=== PATIENT | male | born 1960 | race Caucasian/White ===

== ENCOUNTER 2017-08-01 20:29 | Emergency (ER) | payer OTHER, MEDICARE ==
[~2017-08-01] VITALS: Ht 185.4 cm; Wt 122.5 kg
[~2017-08-01 20:29] MED LIST: ALBU3IS INH; ALBU90OI6 INH; AMLO5 PO; AZIT250 PO; CEFD300 PO; CIPR500 PO; CYCL10 PO; DIVA500EC PO; DULO30 PO; ENOX100I SC; FERR325 PO; FLUSAL1005 IH; FLUSAL1005 INH; FURO40 PO; Flomax0.4 MG PO; GLIP5 PO; GUAI600T33 PO; IBUP400 PO; Keflex500 MG PO; LACT10SY PO; LAVAP17G PO; LEVFLO500 PO; LEVO750 PO; LISI20 PO; MECL25 PO; METH10 PO; METH40; METO25 PO; OMEP20ER PO; POTCHL10ER PO; PRED10 PO; PROCODE120 PO; Prednisone20 MG PO; QVAR7.3 G1 INH; SPIR50 PO; TIOT18 INH; TRAM50 PO; VITAMIN D5000 UNIT PO; WARF5 PO; WARF7.5 PO; Zithromax250 MG PO
[2017-08-01 21:22] LABS: Hematocrit 45.2 % (37.0-53.0); Hemoglobin 15.1 g/dL (13.5-17.5); Mean Corpuscular HGB 32.9 pg (26.0-34.0); Mean Corpuscular HGB Conc 33.4 g/dL (31.5-36.5); Mean Corpuscular Volume 99 fL (80-100); Mean Platelet Volume 10.9 fL (9.1-12.4); Platelet Count 199 K/mm3 (150-400); RDW Coefficient Variation 12.2 % (11.7-14.2); RDW Standard Deviation 44.5 fL (35.1-46.3); Red Blood Cell Count 4.59 M/mm3 (4.30-5.90); White Blood Cell Count 8.81 K/mm3 (4.00-11.30)
[2017-08-01 21:33] LABS: International Normalized Ratio 2.01; Prothrombin Time Results 21.4 Sec (9.7-11.5)
[2017-08-01 21:35] LABS: Anion Gap 7 mmol/L (6-16); Blood Urea Nitrogen 24 mg/dL (8-24); Bun/Creatinine Ratio 31.2 (12.0-20.0); CO2, Blood 29 mmol/L (21-32); Calcium, Blood 8.9 mg/dL (8.5-10.1); Chloride, Blood 100 mmol/L (98-108); Creatinine, Blood 0.77 mg/dL (0.60-1.20); Glomerular Filtration Rate >60 (60-); Glucose, Blood 84 mg/dL (70-99); Sodium, Blood 136 mmol/L (136-145)
== END 2017-08-01 22:15 | disposition home or self-care (01) ==
LOC: ER 20:29
PROVIDERS: Emergency Medicine
DX: S30.1XXA Contusion of abdominal wall, initial encounter (principal); E11.9 Type 2 diabetes mellitus without complications; J44.9 Chronic obstructive pulmonary disease, unspecified; F41.9 Anxiety disorder, unspecified; F31.9 Bipolar disorder, unspecified; Z86.711 Personal history of pulmonary embolism; Z87.01 Personal history of pneumonia (recurrent); V49.49XA Driver injured in collision with other motor vehicles in traffic accident, initial encounter; Y92.481 Parking lot as the place of occurrence of the external cause; Z88.8 Allergy status to other drugs, medicaments and biological substances; Z88.1 Allergy status to other antibiotic agents; Z79.899 Other long term (current) drug therapy; Z79.01 Long term (current) use of anticoagulants
CPT/HCPCS: 36415; 74176; 80048; 85027; 85610; 99284

== ENCOUNTER → 2017-09-14 | Outpatient (CLI) | payer MEDICARE ==
[2017-09-14 14:27] LABS: International Normalized Ratio 1.86; Prothrombin Time Results 19.7 Sec (9.7-11.5)
== END | disposition home or self-care (01) ==
LOC: OLS 12:23
PROVIDERS: Family Medicine
DX: E11.9 Type 2 diabetes mellitus without complications (principal); Z79.01 Long term (current) use of anticoagulants
CPT/HCPCS: 36415; 83036; 85610

== ENCOUNTER 2019-10-01 00:26 | Emergency (ER) | payer MEDICARE ==
[~2019-10-01] VITALS: Ht 185.4 cm; Wt 81.7 kg
[2019-10-01 01:42] LABS: Source, Urine Clean Catch
[2019-10-01 01:44] LABS: Appearance, Urine Hazy (Clear); Bilirubin, Urine Neg (Neg); Blood, Urine 2+ (Neg); Color, Urine Yellow (P-Yellow); Glucose Qualitative, Urine Neg (Neg); Ketones, Urine 1+ (Neg); Leukocyte Esterase, Urine 3+ (Neg); Nitrite, Urine Pos (Neg); Protein, Urine 2+ (Neg); Specific Gravity, Urine 1.015 (1.003-1.022); Urobilinogen, Urine NORM (Normal)
[2019-10-01 02:02] LABS: Bacteria Many /hpf; Red Blood Cells, Urine Rare /hpf (0-2); Squamous Epithelial Cells Not Seen /hpf (Few); White Blood Cells, Urine TNTC /hpf (0-5)
[2019-10-01] MEDS ORDERED: CEFD300 PO (02:10)
== END 2019-10-01 02:45 | disposition home or self-care (01) ==
LOC: ER 00:26
PROVIDERS: Emergency Medicine
DX: N39.0 Urinary tract infection, site not specified (principal); J44.9 Chronic obstructive pulmonary disease, unspecified; E11.9 Type 2 diabetes mellitus without complications; F31.9 Bipolar disorder, unspecified; F41.9 Anxiety disorder, unspecified; Z86.711 Personal history of pulmonary embolism; Z86.718 Personal history of other venous thrombosis and embolism; Z87.01 Personal history of pneumonia (recurrent); Z88.1 Allergy status to other antibiotic agents; Z88.8 Allergy status to other drugs, medicaments and biological substances; Z79.899 Other long term (current) drug therapy; Z87.891 Personal history of nicotine dependence
CPT/HCPCS: 81001; 87077; 87086; 87186; 99283

== ENCOUNTER 2019-10-08 20:37 | Emergency (ER) | payer MEDICARE ==
[~2019-10-08] VITALS: Ht 185.4 cm; Wt 124.3 kg
[2019-10-08 21:04] LABS: Source, Urine Clean Catch
[2019-10-08 21:07] LABS: Appearance, Urine Clear (Clear); Bilirubin, Urine Neg (Neg); Blood, Urine Neg (Neg); Color, Urine Yellow (P-Yellow); Glucose Qualitative, Urine Neg (Neg); Ketones, Urine Neg (Neg); Leukocyte Esterase, Urine Neg (Neg); Nitrite, Urine Neg (Neg); Protein, Urine Neg (Neg); Urobilinogen, Urine NORM (Normal)
[2019-10-08] MEDS ORDERED: Keflex500 MG PO (21:27)
== END 2019-10-08 21:42 | disposition home or self-care (01) ==
LOC: ER 20:37
PROVIDERS: Nurse Practitioner
DX: R30.0 Dysuria (principal); J44.9 Chronic obstructive pulmonary disease, unspecified; F31.9 Bipolar disorder, unspecified; F41.9 Anxiety disorder, unspecified; Z86.711 Personal history of pulmonary embolism; Z87.01 Personal history of pneumonia (recurrent); Z88.0 Allergy status to penicillin; Z88.8 Allergy status to other drugs, medicaments and biological substances; Z79.899 Other long term (current) drug therapy; Z87.891 Personal history of nicotine dependence
CPT/HCPCS: 81003; 99283; A9270-GY

== ENCOUNTER 2020-07-06 01:22 | Emergency (ER) | payer MEDICARE ==
[~2020-07-06] VITALS: Ht 185.4 cm; Wt 117.9 kg
[2020-07-06 02:23] LABS: International Normalized Ratio 1.85; Prothrombin Time Results 19.1 Sec (9.7-11.5)
[2020-07-06] MEDS ORDERED: Cleocin HCl300 MG PO (02:58)
== END 2020-07-06 03:24 | disposition home or self-care (01) ==
LOC: ER 01:22
PROVIDERS: Emergency Medicine
DX: R05 Cough (principal); E11.9 Type 2 diabetes mellitus without complications; J44.9 Chronic obstructive pulmonary disease, unspecified; Z79.01 Long term (current) use of anticoagulants; Z79.899 Other long term (current) drug therapy; Z88.8 Allergy status to other drugs, medicaments and biological substances; Z88.0 Allergy status to penicillin; Z88.1 Allergy status to other antibiotic agents; Z86.711 Personal history of pulmonary embolism; Z86.718 Personal history of other venous thrombosis and embolism
CPT/HCPCS: 36415; 71046; 85610; 99284-25

== ENCOUNTER 2020-07-27 19:55 | Emergency (ER) | payer MEDICARE ==
[~2020-07-27] VITALS: Ht 185.4 cm; Wt 121.6 kg
[~2020-07-27 19:55] MED LIST changes: +Cleocin HCl300 MG PO
[2020-07-27] MEDS ORDERED: CEPH500 PO (20:45)
[2020-07-27] MEDS ORDERED: Amphetamine Sal20 MG PO (21:14)
== END 2020-07-27 21:16 | disposition home or self-care (01) ==
LOC: ER 19:55
DX: L02.212 Cutaneous abscess of back [any part, except buttock and flank] (principal); J44.9 Chronic obstructive pulmonary disease, unspecified; E11.9 Type 2 diabetes mellitus without complications; Z23 Encounter for immunization; Z79.01 Long term (current) use of anticoagulants; Z79.899 Other long term (current) drug therapy; Z88.0 Allergy status to penicillin; Z88.1 Allergy status to other antibiotic agents; Z86.711 Personal history of pulmonary embolism; Z86.718 Personal history of other venous thrombosis and embolism; Z87.891 Personal history of nicotine dependence
CPT/HCPCS: 90471; 90714; 99282

== ENCOUNTER 2020-08-28 00:39 | Emergency (ER) | payer MEDICARE ==
[~2020-08-28] VITALS: Ht 185.4 cm; Wt 120.2 kg
[~2020-08-28 00:39] MED LIST changes: +Amphetamine Sal20 MG PO; +CEPH500 PO
[2020-08-28] MEDS ORDERED: Levaquin750 MG PO (03:44)
== END 2020-08-28 04:31 | disposition home or self-care (01) ==
LOC: ER 00:39
DX: J18.9 Pneumonia, unspecified organism (principal); J44.9 Chronic obstructive pulmonary disease, unspecified; E11.9 Type 2 diabetes mellitus without complications; Z20.822 Contact with and (suspected) exposure to COVID-19; Z88.0 Allergy status to penicillin; Z88.1 Allergy status to other antibiotic agents; Z88.6 Allergy status to analgesic agent; Z79.01 Long term (current) use of anticoagulants; Z79.891 Long term (current) use of opiate analgesic; Z87.891 Personal history of nicotine dependence
CPT/HCPCS: 71045; 99283-25; A9270

== ENCOUNTER 2020-09-17 21:19 | Emergency (ER) | payer MEDICARE ==
[~2020-09-17] VITALS: Ht 185.4 cm; Wt 122.5 kg
[~2020-09-17 21:19] MED LIST changes: +Levaquin750 MG PO
[2020-09-17] MEDS ORDERED: Prednisone50 MG PO (23:21)
[2020-09-17] MEDS ORDERED: DOXYCYCLINE HY100 M1 PO (23:21)
== END 2020-09-18 00:32 | disposition home or self-care (01) ==
LOC: ER 21:19
DX: J44.1 Chronic obstructive pulmonary disease with (acute) exacerbation (principal); E11.9 Type 2 diabetes mellitus without complications; Z88.0 Allergy status to penicillin; Z88.1 Allergy status to other antibiotic agents; Z88.8 Allergy status to other drugs, medicaments and biological substances; Z86.718 Personal history of other venous thrombosis and embolism; Z87.891 Personal history of nicotine dependence
CPT/HCPCS: 71046; 94640; 99283-25; A9270; J7512

== ENCOUNTER → 2020-10-26 | Outpatient (CLI) | payer MEDICARE, OTHER ==
[~2020-10-26] MED LIST changes: +DOXYCYCLINE HY100 M1 PO; +Prednisone50 MG PO
== END | disposition home or self-care (01) ==
LOC: LAB SHORT 16:36 → LAB EV 16:36
DX: R30.9 Painful micturition, unspecified (principal)
CPT/HCPCS: 87086

== ENCOUNTER 2020-12-30 19:14 | Emergency (ER) | payer MEDICARE ==
[~2020-12-30] VITALS: Ht 185.4 cm; Wt 124.7 kg
[2020-12-30 20:36] LABS: BASOPHILS ABSOLUTE AUTO 0.04 K/mm3 (0.00-0.23); BASOPHILS PERCENT AUTO 0 % (0-2); EOSINOPHILS ABSOLUTE AUTO 0.06 K/mm3 (0.00-0.68); EOSINOPHILS PERCENT AUTO 1 % (0-6); Hematocrit 43.9 % (37.0-53.0); Hemoglobin 14.9 g/dL (13.5-17.5); IMMATURE GRAN ABSOLUTE AUTO 0.02 K/mm3 (0.00-0.10); IMMATURE GRAN PERCENT AUTO 0 % (0-1); LYMPHOCYTES ABSOLUTE AUTO 3.08 K/mm3 (0.84-5.20); LYMPHOCYTES PERCENT AUTO 27 % (21-46); MONOCYTES ABSOLUTE AUTO 0.88 K/mm3 (0.16-1.47); MONOCYTES PERCENT AUTO 8 % (4-13); Mean Corpuscular HGB 33.7 pg (26.0-34.0); Mean Corpuscular HGB Conc 33.9 g/dL (31.5-36.5); Mean Corpuscular Volume 99 fL (80-100); Mean Platelet Volume 11.1 fL (9.1-12.4); NEUTROPHILS ABSOLUTE AUTO 7.44 K/mm3 (1.96-9.15); NEUTROPHILS PERCENT AUTO 65 % (41-73); Platelet Count 184 K/mm3 (150-400); RDW Coefficient Variation 12.3 % (11.7-14.2); RDW Standard Deviation 45.7 fL (35.1-46.3); Red Blood Cell Count 4.42 M/mm3 (4.30-5.90); White Blood Cell Count 11.52 K/mm3 (4.00-11.30)
[2020-12-30 20:54] LABS: Alanine Aminotransfer (ALT/SGP 23 U/L (12-78); Albumin, Blood 3.9 g/dL (3.4-5.0); Alk Phos 67 U/L (50-136); Anion Gap 3 mmol/L (6-16); Aspartate Aminotrans (AST/SGOT 20 U/L (12-37); Bilirubin, Total 0.5 mg/dL (0.1-1.0); Blood Urea Nitrogen 23 mg/dL (8-24); Bun/Creatinine Ratio 26.7 (12.0-20.0); CO2, Blood 31 mmol/L (21-32); Chloride, Blood 102 mmol/L (98-108); Creatinine, Blood 0.86 mg/dL (0.60-1.20); Globulin, Blood 3.9 g/dL (2.2-4.0); Glomerular Filtration Rate >60 (60-); Glucose, Blood 122 mg/dL (70-99); Potassium, Blood 4.7 mmol/L (3.5-5.5); Sodium, Blood 136 mmol/L (136-145); Total Protein, Blood 7.8 g/dL (6.4-8.2)
[2020-12-30 23:45] LABS: International Normalized Ratio 2.16; Prothrombin Time Results 22.3 Sec (9.7-11.5)
[2020-12-31 00:14] LABS: Troponin I <0.015 ng/mL (0.000-0.040)
[2020-12-31] MEDS ORDERED: Prednisone50 MG PO (00:51)
[2020-12-31] MEDS ORDERED: Vibramycin100 MG PO (00:51)
[2020-12-31] MEDS ORDERED: ALBU90OI61 INH (00:53)
== END 2020-12-31 01:04 | disposition home or self-care (01) ==
LOC: ER 19:14
PROVIDERS: Emergency Medicine
DX: J44.1 Chronic obstructive pulmonary disease with (acute) exacerbation (principal)
CPT/HCPCS: 36415; 71046; 80053; 84484; 85025; 85610; 94644; 96374; 99285-25; J2930

== ENCOUNTER → 2021-07-23 | Outpatient (CLI) | payer MEDICARE ==
[~2021-07-23] MED LIST changes: +ALBU90OI61 INH; +Vibramycin100 MG PO
== END | disposition home or self-care (01) ==
LOC: LAB SHORT 19:12
DX: N12 Tubulo-interstitial nephritis, not specified as acute or chronic (principal)
CPT/HCPCS: 87086

== ENCOUNTER 2021-09-07 21:10 | Emergency (ER) | payer MEDICARE ==
[~2021-09-07] VITALS: Ht 185.4 cm; Wt 122.5 kg
[2021-09-07 21:48] LABS: BASOPHILS ABSOLUTE AUTO 0.03 K/mm3 (0.00-0.23); BASOPHILS PERCENT AUTO 0 % (0-2); EOSINOPHILS ABSOLUTE AUTO 0.05 K/mm3 (0.00-0.68); EOSINOPHILS PERCENT AUTO 1 % (0-6); Hematocrit 40.3 % (37.0-53.0); Hemoglobin 13.6 g/dL (13.5-17.5); IMMATURE GRAN ABSOLUTE AUTO 0.03 K/mm3 (0.00-0.10); IMMATURE GRAN PERCENT AUTO 0 % (0-1); LYMPHOCYTES ABSOLUTE AUTO 2.19 K/mm3 (0.84-5.20); LYMPHOCYTES PERCENT AUTO 26 % (21-46); MONOCYTES ABSOLUTE AUTO 0.49 K/mm3 (0.16-1.47); MONOCYTES PERCENT AUTO 6 % (4-13); Mean Corpuscular HGB 33.3 pg (26.0-34.0); Mean Corpuscular HGB Conc 33.7 g/dL (31.5-36.5); Mean Corpuscular Volume 99 fL (80-100); Mean Platelet Volume 10.6 fL (9.1-12.4); NEUTROPHILS ABSOLUTE AUTO 5.66 K/mm3 (1.96-9.15); NEUTROPHILS PERCENT AUTO 67 % (41-73); Platelet Count 176 K/mm3 (150-400); RDW Coefficient Variation 11.8 % (11.7-14.2); RDW Standard Deviation 43.1 fL (35.1-46.3); Red Blood Cell Count 4.08 M/mm3 (4.30-5.90); White Blood Cell Count 8.45 K/mm3 (4.00-11.30)
[2021-09-07 21:53] LABS: Source, Urine Clean Catch
[2021-09-07 22:02] LABS: Bilirubin, Urine Neg (Neg); Blood, Urine Neg (Neg); Glucose Qualitative, Urine Neg (Neg); Ketones, Urine 1+ (Neg); Leukocyte Esterase, Urine 1+ (Neg); Nitrite, Urine Neg (Neg); Protein, Urine Neg (Neg); Urobilinogen, Urine NORM (Normal)
[2021-09-07 22:10] LABS: Alanine Aminotransfer (ALT/SGP 29 U/L (12-78); Albumin, Blood 4.1 g/dL (3.4-5.0); Albumin/Globulin Ratio 1.2 (0.8-1.8); Alk Phos 74 U/L (50-136); Anion Gap 7 mmol/L (6-16); Aspartate Aminotrans (AST/SGOT 18 U/L (12-37); Bilirubin, Total 0.4 mg/dL (0.1-1.0); Blood Urea Nitrogen 22 mg/dL (8-24); Bun/Creatinine Ratio 25.5 (12.0-20.0); CO2, Blood 29 mmol/L (21-32); Calcium, Blood 9.1 mg/dL (8.5-10.1); Chloride, Blood 102 mmol/L (98-108); Creatinine, Blood 0.86 mg/dL (0.60-1.20); Globulin, Blood 3.5 g/dL (2.2-4.0); Glomerular Filtration Rate >60 (60-); Glucose, Blood 114 mg/dL (70-99); Potassium, Blood 4.1 mmol/L (3.5-5.5); Sodium, Blood 138 mmol/L (136-145); Total Protein, Blood 7.6 g/dL (6.4-8.2)
[2021-09-07 22:16] LABS: Appearance, Urine Clear (Clear); Color, Urine Yellow (P-Yellow)
[2021-09-07 22:18] LABS: Bacteria Rare /hpf; Red Blood Cells, Urine Not Seen /hpf (0-2); Squamous Epithelial Cells Rare /hpf (Few); White Blood Cells, Urine 0-2 /hpf (0-5)
[2021-09-08] MEDS ORDERED: CYCL10 PO (01:01)
== END 2021-09-08 01:15 | disposition home or self-care (01) ==
LOC: ER 21:10
PROVIDERS: Emergency Medicine
DX: M54.9 Dorsalgia, unspecified (principal); E11.9 Type 2 diabetes mellitus without complications; J44.9 Chronic obstructive pulmonary disease, unspecified; Z87.891 Personal history of nicotine dependence; Z79.899 Other long term (current) drug therapy; Z88.1 Allergy status to other antibiotic agents; Z88.8 Allergy status to other drugs, medicaments and biological substances
CPT/HCPCS: 36415; 76770; 80053; 81001; 85025; 87086; 96374; 99284-25; A9270; J1885

== ENCOUNTER → 2021-09-13 | Outpatient (CLI) | payer MEDICARE ==
[2021-09-13 14:09] LABS: International Normalized Ratio 2.65; Prothrombin Time Results 26.1 Sec (9.7-11.5)
== END ==
LOC: LAB SHORT 13:41
PROVIDERS: Family Medicine
DX: I82.402 Acute embolism and thrombosis of unspecified deep veins of left lower extremity (principal)
CPT/HCPCS: 85610

== ENCOUNTER 2021-11-06 00:39 | Emergency (ER) | payer MEDICARE ==
[~2021-11-06] VITALS: Ht 185.4 cm; Wt 120.2 kg
[2021-11-06 01:59] LABS: BASOPHILS ABSOLUTE AUTO 0.04 K/mm3 (0.00-0.23); BASOPHILS PERCENT AUTO 0 % (0-2); EOSINOPHILS ABSOLUTE AUTO 0.18 K/mm3 (0.00-0.68); EOSINOPHILS PERCENT AUTO 2 % (0-6); Hematocrit 41.8 % (37.0-53.0); Hemoglobin 14.1 g/dL (13.5-17.5); IMMATURE GRAN ABSOLUTE AUTO 0.04 K/mm3 (0.00-0.10); IMMATURE GRAN PERCENT AUTO 0 % (0-1); LYMPHOCYTES ABSOLUTE AUTO 3.52 K/mm3 (0.84-5.20); LYMPHOCYTES PERCENT AUTO 34 % (21-46); MONOCYTES ABSOLUTE AUTO 0.93 K/mm3 (0.16-1.47); MONOCYTES PERCENT AUTO 9 % (4-13); Mean Corpuscular HGB 33.8 pg (26.0-34.0); Mean Corpuscular HGB Conc 33.7 g/dL (31.5-36.5); Mean Corpuscular Volume 100 fL (80-100); Mean Platelet Volume 10.8 fL (9.1-12.4); NEUTROPHILS ABSOLUTE AUTO 5.81 K/mm3 (1.96-9.15); NEUTROPHILS PERCENT AUTO 55 % (41-73); Platelet Count 208 K/mm3 (150-400); RDW Coefficient Variation 11.8 % (11.7-14.2); RDW Standard Deviation 43.3 fL (35.1-46.3); Red Blood Cell Count 4.17 M/mm3 (4.30-5.90); White Blood Cell Count 10.52 K/mm3 (4.00-11.30)
[2021-11-06 02:10] LABS: International Normalized Ratio 1.09; Prothrombin Time Results 11.4 Sec (9.7-11.5)
[2021-11-06 02:15] LABS: Alanine Aminotransfer (ALT/SGP 24 U/L (12-78); Albumin/Globulin Ratio 1.1 (0.8-1.8); Alk Phos 72 U/L (50-136); Anion Gap 4 mmol/L (6-16); Aspartate Aminotrans (AST/SGOT 15 U/L (12-37); Bilirubin, Total 0.5 mg/dL (0.1-1.0); Blood Urea Nitrogen 24 mg/dL (8-24); Bun/Creatinine Ratio 24.4 (12.0-20.0); CO2, Blood 31 mmol/L (21-32); Chloride, Blood 100 mmol/L (98-108); Creatinine, Blood 0.99 mg/dL (0.60-1.20); Globulin, Blood 3.8 g/dL (2.2-4.0); Glomerular Filtration Rate >60 (60-); Glucose, Blood 147 mg/dL (70-99); Potassium, Blood 4.1 mmol/L (3.5-5.5); Sodium, Blood 135 mmol/L (136-145); Total Protein, Blood 7.8 g/dL (6.4-8.2)
[2021-11-06] MEDS ORDERED: MECL25 PO (06:45)
== END 2021-11-06 07:38 | disposition home or self-care (01) ==
LOC: ER 00:39
PROVIDERS: Physician Assistant
DX: R07.9 Chest pain, unspecified (principal); R42 Dizziness and giddiness; J44.9 Chronic obstructive pulmonary disease, unspecified; E11.9 Type 2 diabetes mellitus without complications; F31.9 Bipolar disorder, unspecified; Z86.711 Personal history of pulmonary embolism; Z79.01 Long term (current) use of anticoagulants; Z87.891 Personal history of nicotine dependence; Z79.899 Other long term (current) drug therapy; Z88.0 Allergy status to penicillin; Z88.5 Allergy status to narcotic agent; Z88.8 Allergy status to other drugs, medicaments and biological substances
CPT/HCPCS: 36415; 70450; 71045; 80053; 84484; 85025; 85610; A9270

== ENCOUNTER → 2021-11-29 | Outpatient (CLI) | payer MEDICARE ==
[2021-11-29 13:44] LABS: Protein, Urine Quantitative 6.2 mg/dL (0.0-11.9)
[2021-11-29 13:48] LABS: Microalbumin, Urine Quant. <5.000 mg/L (0.000-20.000)
== END ==
LOC: LAB SHORT 11:56 → LAB FUT 11-27 14:45
PROVIDERS: Internal Medicine Nephrology
DX: D50.9 Iron deficiency anemia, unspecified (principal); N18.2 Chronic kidney disease, stage 2 (mild); D63.1 Anemia in chronic kidney disease; N25.81 Secondary hyperparathyroidism of renal origin; E55.9 Vitamin D deficiency, unspecified; E78.00 Pure hypercholesterolemia, unspecified; R76.9 Abnormal immunological finding in serum, unspecified; R94.5 Abnormal results of liver function studies; R94.6 Abnormal results of thyroid function studies; D51.8 Other vitamin B12 deficiency anemias; D52.8 Other folate deficiency anemias
CPT/HCPCS: 81050; 82043; 82570; 84156

== ENCOUNTER 2021-12-06 13:06 | Emergency (ER) | payer MEDICARE, OTHER ==
[~2021-12-06] VITALS: Ht 185.4 cm; Wt 118.8 kg
[2021-12-06 14:14] LABS: BASOPHILS ABSOLUTE AUTO 0.02 K/mm3 (0.00-0.23); BASOPHILS PERCENT AUTO 0 % (0-2); EOSINOPHILS ABSOLUTE AUTO 0.05 K/mm3 (0.00-0.68); EOSINOPHILS PERCENT AUTO 1 % (0-6); Hematocrit 39.2 % (37.0-53.0); Hemoglobin 13.5 g/dL (13.5-17.5); IMMATURE GRAN ABSOLUTE AUTO 0.03 K/mm3 (0.00-0.10); IMMATURE GRAN PERCENT AUTO 0 % (0-1); LYMPHOCYTES ABSOLUTE AUTO 2.04 K/mm3 (0.84-5.20); LYMPHOCYTES PERCENT AUTO 23 % (21-46); MONOCYTES ABSOLUTE AUTO 0.41 K/mm3 (0.16-1.47); MONOCYTES PERCENT AUTO 5 % (4-13); Mean Corpuscular HGB 33.4 pg (26.0-34.0); Mean Corpuscular HGB Conc 34.4 g/dL (31.5-36.5); Mean Corpuscular Volume 97 fL (80-100); Mean Platelet Volume 11.4 fL (9.1-12.4); NEUTROPHILS ABSOLUTE AUTO 6.23 K/mm3 (1.96-9.15); NEUTROPHILS PERCENT AUTO 71 % (41-73); Platelet Count 209 K/mm3 (150-400); RDW Coefficient Variation 11.2 % (11.7-14.2); RDW Standard Deviation 40.3 fL (35.1-46.3); Red Blood Cell Count 4.04 M/mm3 (4.30-5.90); White Blood Cell Count 8.78 K/mm3 (4.00-11.30)
[2021-12-06 14:18] LABS: Albumin, Blood 3.8 g/dL (3.4-5.0); Bilirubin, Total 0.5 mg/dL (0.1-1.0); Bun/Creatinine Ratio 25.1 (12.0-20.0); Calcium, Blood 9.2 mg/dL (8.5-10.1); Creatinine, Blood 0.72 mg/dL (0.60-1.20); Globulin, Blood 3.9 g/dL (2.2-4.0); Potassium, Blood 4.3 mmol/L (3.5-5.5); Total Protein, Blood 7.7 g/dL (6.4-8.2)
[2021-12-06 16:08] LABS: Source, Urine Clean Catch
[2021-12-06] MEDS ORDERED: TAMS.4ER (16:21)
[2021-12-06] MEDS ORDERED: METF500 (16:21)
[2021-12-06 16:22] LABS: Appearance, Urine Clear (Clear); Bilirubin, Urine Neg (Neg); Blood, Urine Neg (Neg); Glucose Qualitative, Urine Neg (Neg); Ketones, Urine Neg (Neg); Leukocyte Esterase, Urine Neg (Neg); Nitrite, Urine Neg (Neg); Protein, Urine Neg (Neg); Specific Gravity, Urine 1.005 (1.003-1.022); Urobilinogen, Urine NORM (Normal)
[2021-12-06 16:42] LABS: Color, Urine Pale Yellow (P-Yellow)
== END 2021-12-06 17:14 | disposition home or self-care (01) ==
LOC: ER 13:06
PROVIDERS: Student in an Organized Health Care Education/Training Program
DX: R10.10 Upper abdominal pain, unspecified (principal); J44.9 Chronic obstructive pulmonary disease, unspecified; E11.9 Type 2 diabetes mellitus without complications; Z99.81 Dependence on supplemental oxygen
CPT/HCPCS: 36415; 74177; 80053; 81003; 83690; 84484; 85025; 93005; 93010; Q9967

== ENCOUNTER 2021-12-28 16:07 | Emergency (ER) | payer MEDICARE ==
[~2021-12-28] VITALS: Ht 188 cm; Wt 95.2 kg
[~2021-12-28 16:07] MED LIST changes: +METF500; +TAMS.4ER
[2021-12-28 18:04] LABS: BASOPHILS ABSOLUTE AUTO 0.03 K/mm3 (0.00-0.23); BASOPHILS PERCENT AUTO 0 % (0-2); EOSINOPHILS ABSOLUTE AUTO 0.05 K/mm3 (0.00-0.68); EOSINOPHILS PERCENT AUTO 1 % (0-6); Hematocrit 40.1 % (37.0-53.0); Hemoglobin 13.9 g/dL (13.5-17.5); IMMATURE GRAN ABSOLUTE AUTO 0.01 K/mm3 (0.00-0.10); IMMATURE GRAN PERCENT AUTO 0 % (0-1); LYMPHOCYTES ABSOLUTE AUTO 2.75 K/mm3 (0.84-5.20); LYMPHOCYTES PERCENT AUTO 33 % (21-46); MONOCYTES ABSOLUTE AUTO 0.48 K/mm3 (0.16-1.47); MONOCYTES PERCENT AUTO 6 % (4-13); Mean Corpuscular HGB 33.3 pg (26.0-34.0); Mean Corpuscular HGB Conc 34.7 g/dL (31.5-36.5); Mean Corpuscular Volume 96 fL (80-100); Mean Platelet Volume 10.6 fL (9.1-12.4); NEUTROPHILS ABSOLUTE AUTO 5.05 K/mm3 (1.96-9.15); NEUTROPHILS PERCENT AUTO 60 % (41-73); Platelet Count 197 K/mm3 (150-400); RDW Coefficient Variation 11.5 % (11.7-14.2); RDW Standard Deviation 40.6 fL (35.1-46.3); Red Blood Cell Count 4.17 M/mm3 (4.30-5.90); White Blood Cell Count 8.37 K/mm3 (4.00-11.30)
[2021-12-28 18:13] LABS: International Normalized Ratio 2.39; Prothrombin Time Results 23.7 Sec (9.7-11.5)
[2021-12-28 18:18] LABS: Albumin, Blood 4.1 g/dL (3.4-5.0); Albumin/Globulin Ratio 1.1 (0.8-1.8); Bilirubin, Total 0.5 mg/dL (0.1-1.0); Bun/Creatinine Ratio 21.8 (12.0-20.0); Calcium, Blood 9.4 mg/dL (8.5-10.1); Creatinine, Blood 0.97 mg/dL (0.60-1.20); Globulin, Blood 3.8 g/dL (2.2-4.0); Potassium, Blood 4.1 mmol/L (3.5-5.5); Total Protein, Blood 7.9 g/dL (6.4-8.2)
[2021-12-28 18:29] LABS: Valproic Acid <3.0 ug/mL (50.0-100.0)
[2021-12-28] MEDS ORDERED: ACETAMINOPHEN500 MG PO (19:18)
== END 2021-12-28 20:05 | disposition home or self-care (01) ==
LOC: ER 16:07
PROVIDERS: Physician Assistant
DX: M26.621 Arthralgia of right temporomandibular joint (principal); M54.2 Cervicalgia; D17.0 Benign lipomatous neoplasm of skin and subcutaneous tissue of head, face and neck; J44.9 Chronic obstructive pulmonary disease, unspecified; E11.9 Type 2 diabetes mellitus without complications; Z79.01 Long term (current) use of anticoagulants; Z79.899 Other long term (current) drug therapy; Z79.84 Long term (current) use of oral hypoglycemic drugs; Z88.0 Allergy status to penicillin; Z88.8 Allergy status to other drugs, medicaments and biological substances
CPT/HCPCS: 36415; 80053; 80164; 85025; 85610; J1200; J1885; J2765; J7030

== ENCOUNTER → 2022-03-19 | Outpatient (CLI) | payer MEDICARE ==
[~2022-03-19] MED LIST changes: +ACETAMINOPHEN500 MG PO
[2022-03-19 18:31] LABS: Valproic Acid 81.3 ug/mL (50.0-100.0)
== END | disposition home or self-care (01) ==
LOC: LAB SHORT 15:45
PROVIDERS: Family Medicine
DX: F31.9 Bipolar disorder, unspecified (principal)
CPT/HCPCS: 80164

== ENCOUNTER → 2022-10-07 | Outpatient (CLI) | payer MEDICARE ==
[2022-10-07 17:31] LABS: International Normalized Ratio 1.16; Prothrombin Time Results 12.1 Sec (9.7-11.5)
== END | disposition home or self-care (01) ==
LOC: LAB SHORT 16:36
PROVIDERS: Family Medicine
DX: Z79.01 Long term (current) use of anticoagulants (principal); Z51.81 Encounter for therapeutic drug level monitoring
CPT/HCPCS: 85610

== ENCOUNTER → 2022-10-31 | Outpatient (CLI) | payer MEDICARE ==
[2022-10-31 14:09] LABS: Prothrombin Time Results 46.2 Sec (9.7-11.5)
[2022-10-31 14:50] LABS: International Normalized Ratio 4.81
== END | disposition home or self-care (01) ==
LOC: LAB SHORT 13:33
PROVIDERS: Family Medicine
DX: I82.409 Acute embolism and thrombosis of unspecified deep veins of unspecified lower extremity (principal)
CPT/HCPCS: 36415; 85610

== ENCOUNTER → 2022-11-16 | Outpatient (CLI) | payer MEDICARE ==
[2022-11-17 10:10] LABS: BASOPHILS ABSOLUTE AUTO 0.03 K/mm3 (0.00-0.23); BASOPHILS PERCENT AUTO 1 % (0-2); EOSINOPHILS ABSOLUTE AUTO 0.07 K/mm3 (0.00-0.68); EOSINOPHILS PERCENT AUTO 1 % (0-6); Hematocrit 40.2 % (37.0-53.0); Hemoglobin 13.5 g/dL (13.5-17.5); IMMATURE GRAN ABSOLUTE AUTO 0.02 K/mm3 (0.00-0.10); IMMATURE GRAN PERCENT AUTO 0 % (0-1); LYMPHOCYTES ABSOLUTE AUTO 1.88 K/mm3 (0.84-5.20); LYMPHOCYTES PERCENT AUTO 29 % (21-46); MONOCYTES ABSOLUTE AUTO 0.46 K/mm3 (0.16-1.47); MONOCYTES PERCENT AUTO 7 % (4-13); Mean Corpuscular HGB 33.8 pg (26.0-34.0); Mean Corpuscular HGB Conc 33.6 g/dL (31.5-36.5); Mean Corpuscular Volume 101 fL (80-100); Mean Platelet Volume 11.7 fL (9.1-12.4); NEUTROPHILS ABSOLUTE AUTO 3.95 K/mm3 (1.96-9.15); NEUTROPHILS PERCENT AUTO 62 % (41-73); Platelet Count 101 K/mm3 (150-400); RDW Coefficient Variation 13.2 % (11.7-14.2); Red Blood Cell Count 3.99 M/mm3 (4.30-5.90); White Blood Cell Count 6.41 K/mm3 (4.00-11.30)
[2022-11-17 10:18] LABS: International Normalized Ratio 2.83
== END | disposition home or self-care (01) ==
LOC: LAB 15:15 → LAB SHORT 15:15
PROVIDERS: Family Medicine
DX: Z79.01 Long term (current) use of anticoagulants (principal); Z51.81 Encounter for therapeutic drug level monitoring; R10.9 Unspecified abdominal pain
CPT/HCPCS: 83690; 85025; 85610

== ENCOUNTER → 2022-11-17 | Outpatient (CLI) | payer MEDICARE | END | disposition home or self-care (01) | LOC: LAB SHORT 15:46 → LAB 15:46 | DX: R10.9 Unspecified abdominal pain (principal) | CPT/HCPCS: 87338 ==

== ENCOUNTER → 2022-12-16 | Outpatient (CLI) | payer MEDICARE ==
[2022-12-16 18:15] LABS: International Normalized Ratio 2.59; Prothrombin Time Results 25.8 Sec (9.7-11.5)
== END | disposition home or self-care (01) ==
LOC: LAB 17:49 → LAB SHORT 17:49
PROVIDERS: Family Medicine
DX: I82.409 Acute embolism and thrombosis of unspecified deep veins of unspecified lower extremity (principal)
CPT/HCPCS: 85610

== ENCOUNTER → 2023-06-24 | Outpatient (CLI) | payer MEDICARE | LOC: LAB 18:48 → LAB SHORT 18:48 | DX: R30.0 Dysuria (principal) | CPT/HCPCS: 87086 ==

== ENCOUNTER → 2024-07-17 | Outpatient (CLI) | payer MEDICARE ==
[~2024-07-17] MED LIST changes: +FLUT.05NI; +FT SENNA-S 8.61 EACH PO; +GLIP10 PO; +IPRAT-ALBUT 0.5-3 ML INH; +METF500 PO; +ZOLP10 PO
== END | disposition home or self-care (01) ==
LOC: PLD 08:24 → LAB 08:24 → LAB SHORT 08:24
DX: D22.5 Melanocytic nevi of trunk (principal); L82.0 Inflamed seborrheic keratosis; L81.4 Other melanin hyperpigmentation
CPT/HCPCS: 88305

== ENCOUNTER → 2024-07-20 | Outpatient (CLI) | payer MEDICARE ==
[2024-07-20 18:49] LABS: BASOPHILS ABSOLUTE AUTO 0.03 K/mm3 (0.00-0.23); BASOPHILS PERCENT AUTO 0 % (0-2); EOSINOPHILS ABSOLUTE AUTO 0.14 K/mm3 (0.00-0.68); EOSINOPHILS PERCENT AUTO 2 % (0-6); Hematocrit 38.9 % (37.0-53.0); IMMATURE GRAN ABSOLUTE AUTO 0.04 K/mm3 (0.00-0.10); IMMATURE GRAN PERCENT AUTO 1 % (0-1); LYMPHOCYTES ABSOLUTE AUTO 2.31 K/mm3 (0.84-5.20); LYMPHOCYTES PERCENT AUTO 29 % (21-46); MONOCYTES ABSOLUTE AUTO 0.49 K/mm3 (0.16-1.47); MONOCYTES PERCENT AUTO 6 % (4-13); Mean Corpuscular HGB 33.6 pg (26.0-34.0); Mean Corpuscular HGB Conc 33.4 g/dL (31.5-36.5); Mean Corpuscular Volume 101 fL (80-100); Mean Platelet Volume 11.6 fL (9.1-12.4); NEUTROPHILS ABSOLUTE AUTO 5.05 K/mm3 (1.96-9.15); NEUTROPHILS PERCENT AUTO 63 % (41-73); Platelet Count 204 K/mm3 (150-400); RDW Coefficient Variation 12.6 % (11.7-14.2); RDW Standard Deviation 46.9 fL (35.1-46.3); Red Blood Cell Count 3.87 M/mm3 (4.30-5.90); White Blood Cell Count 8.06 K/mm3 (4.00-11.30)
[2024-07-20 19:38] LABS: Albumin, Blood 3.7 g/dL (3.4-5.0); Bilirubin, Total 0.4 mg/dL (0.1-1.0); Bun/Creatinine Ratio 24.3 (12.0-20.0); Calcium, Blood 9.3 mg/dL (8.5-10.1); Creatinine, Blood 1.15 mg/dL (0.60-1.20); Globulin, Blood 3.8 g/dL (2.2-4.0); Potassium, Blood 5.1 mmol/L (3.5-5.5); Total Protein, Blood 7.5 g/dL (6.4-8.2)
[2024-07-23 07:33] LABS: RHEUMATOID FACTOR <10 IU/mL (0-14)
[2024-07-23 18:11] LABS: CYCLIC CITRULLINATED PEP,IGG/A 9 Units (0-19)
== END ==
LOC: LAB 16:46 → LAB SHORT 16:46
PROVIDERS: Internal Medicine Rheumatology
DX: M25.50 Pain in unspecified joint (principal)
CPT/HCPCS: 80053; 85025; 85651; 86200; 86431

== ENCOUNTER → 2025-02-01 | Outpatient (CLI) | payer MEDICARE ==
[2025-02-01 19:05] LABS: BASOPHILS ABSOLUTE AUTO 0.03 K/mm3 (0.00-0.23); BASOPHILS PERCENT AUTO 0 % (0-2); EOSINOPHILS ABSOLUTE AUTO 0.13 K/mm3 (0.00-0.68); EOSINOPHILS PERCENT AUTO 2 % (0-6); Hematocrit 38.0 % (37.0-53.0); Hemoglobin 12.4 g/dL (13.5-17.5); IMMATURE GRAN ABSOLUTE AUTO 0.04 K/mm3 (0.00-0.10); IMMATURE GRAN PERCENT AUTO 1 % (0-1); LYMPHOCYTES ABSOLUTE AUTO 1.62 K/mm3 (0.84-5.20); LYMPHOCYTES PERCENT AUTO 21 % (21-46); MONOCYTES ABSOLUTE AUTO 0.43 K/mm3 (0.16-1.47); MONOCYTES PERCENT AUTO 6 % (4-13); Mean Corpuscular HGB Conc 32.6 g/dL (31.5-36.5); Mean Corpuscular Volume 101 fL (80-100); NEUTROPHILS ABSOLUTE AUTO 5.41 K/mm3 (1.96-9.15); NEUTROPHILS PERCENT AUTO 71 % (41-73); NRBC ABSOLUTE 0.00 K/mm3 (0.00-0.02); NRBC Auto 0.0 /100 WBC (0.0-0.2); Platelet Count 210 K/mm3 (150-400); RDW Coefficient Variation 12.8 % (11.7-14.2); RDW Standard Deviation 47.4 fL (35.1-46.3)
[2025-02-01 19:46] LABS: Alanine Aminotransfer (ALT/SGP 30 U/L (12-78); Albumin, Blood 3.8 g/dL (3.4-5.0); Albumin/Globulin Ratio 0.8 (0.8-1.8); Anion Gap 10 mmol/L (3-11); Aspartate Aminotrans (AST/SGOT 17 U/L (12-37); Bilirubin, Total 0.3 mg/dL (0.1-1.0); Blood Urea Nitrogen 35 mg/dL (8-24); CHOL/HDL RATIO 5.3; CO2, Blood 24 mmol/L (21-32); Calcium, Blood 9.1 mg/dL (8.5-10.1); Chloride, Blood 103 mmol/L (98-108); Cholesterol 258 mg/dL (50-200); Creatinine, Blood 1.70 mg/dL (0.60-1.20); Ferritin, Serum 536 ng/mL (26-388); Globulin, Blood 4.5 g/dL (2.2-4.0); Glucose, Blood 167 mg/dL (70-99); HDL Cholesterol 49 mg/dL (>39); LDL/HDL RATIO 3.1; Low Density Lipoprotein Chol 154 mg/dL (0-110); Potassium, Blood 5.4 mmol/L (3.5-5.5); Sodium, Blood 132 mmol/L (136-145); Total Iron Binding Capacity 331 ug/dL (250-450); Total Protein, Blood 8.3 g/dL (6.4-8.2); Triglycerides 275 mg/dL (30-160); Very Low Density Lipoprot Chol 55 mg/dL (6-32)
== END ==
LOC: LAB 17:15 → LAB SHORT 17:15
PROVIDERS: Family Medicine
DX: E11.9 Type 2 diabetes mellitus without complications (principal); E78.5 Hyperlipidemia, unspecified; R79.89 Other specified abnormal findings of blood chemistry
CPT/HCPCS: 80053; 80061; 82728; 83540; 83550; 85025